=== PATIENT | male | born 1960 | race Caucasian/White ===

== ENCOUNTER 2018-03-01 13:47 | Inpatient (IN) | payer OTHER ==
[~2018-03-01] VITALS: Ht 198.1 cm; Wt 90.0 kg
[2018-03-01] MEDS ORDERED: CYCL10 (14:19)
[2018-03-01] MEDS ORDERED: GLIP2.5ER PO (14:20)
[2018-03-01] MEDS ORDERED: INDO50S PO (14:21)
[2018-03-01] MEDS ORDERED: LISI20 PO (14:22)
[2018-03-01] MEDS ORDERED: METF500C PO (14:22)
[2018-03-01] MEDS ORDERED: NORT25 PO (14:23)
[2018-03-01] MEDS ORDERED: OMEPRAZOLE MAGN20 MG PO (14:23)
[2018-03-01] MEDS ORDERED: Ranitidine HCl300 M1 PO (14:24)
[2018-03-01 15:46] LABS: Source, Urine Clean Catch
[2018-03-01 15:52] LABS: Appearance, Urine Clear (Clear); Bilirubin, Urine Neg (Neg); Blood, Urine Neg (Neg); Color, Urine Yellow (P-Yellow); Glucose Qualitative, Urine Neg (Neg); Ketones, Urine Neg (Neg); Leukocyte Esterase, Urine Neg (Neg); Nitrite, Urine Neg (Neg); Protein, Urine Neg (Neg); Specific Gravity, Urine 1.015 (1.003-1.022); Urobilinogen, Urine NORM (Normal)
[2018-03-01 16:04] LABS: Bun/Creatinine Ratio 22.4 (12.0-20.0); Calcium, Blood 9.2 mg/dL (8.5-10.1); Creatinine, Blood 3.03 mg/dL (0.60-1.20); Potassium, Blood 4.9 mmol/L (3.5-5.5)
[2018-03-01 16:32] LABS: White Blood Cells Urine 0-2 /hpf (0-5)
[2018-03-01 16:38] LABS: Creatinine, Urine Random 62.5 mg/dL (27.00-270.00)
[2018-03-01 17:42] LABS: Eosinophils-Raw #,Urine 0
[2018-03-02 04:11] LABS: Bun/Creatinine Ratio 30.7 (12.0-20.0); Creatinine, Blood 1.63 mg/dL (0.60-1.20); Potassium, Blood 4.8 mmol/L (3.5-5.5)
[2018-03-03] MEDS ORDERED: FLONASE ALLERG9.9 ML (03:30)
[2018-03-03] MEDS ORDERED: Advil200 M1 PO (03:35)
[2018-03-03] MEDS ORDERED: [UNRECOGNIZED DRUG - OTHER] PO (03:54)
[2018-03-03] MEDS ORDERED: PSEUDOEPHEDRINE PO (03:54)
[2018-03-03] MEDS ORDERED: Levitra20 MG PO (04:01)
[2018-03-03 09:30] LABS: Albumin, Blood 3.6 g/dL (3.4-5.0); Anion Gap 5 mmol/L (6-16); Blood Urea Nitrogen 29 mg/dL (8-24); Bun/Creatinine Ratio 27.1 (12.0-20.0); CO2, Blood 30 mmol/L (21-32); Calcium, Blood 8.8 mg/dL (8.5-10.1); Chloride, Blood 102 mmol/L (98-108); Creatinine, Blood 1.07 mg/dL (0.60-1.20); Glomerular Filtration Rate >60 (60-); Glucose, Blood 163 mg/dL (70-99); Phosphorus, Blood 2.1 mg/dL (2.5-4.9); Potassium, Blood 5.2 mmol/L (3.5-5.5); Sodium, Blood 137 mmol/L (136-145)
[2018-03-03] MEDS ORDERED: CYCL10 PO (10:37)
[2018-03-03] MEDS ORDERED: TRAM50 PO (10:38)
== END 2018-03-03 11:51 | disposition home or self-care (01) | DRG 684 ==
LOC: ER 13:47 → MEDS 14:35 → ENPENDDIS 03-03 10:14 → MEDS 03-03 11:51
PROVIDERS: Emergency Medicine; Internal Medicine
DX: N17.0 Acute kidney failure with tubular necrosis (principal); E11.9 Type 2 diabetes mellitus without complications; I10 Essential (primary) hypertension; M54.9 Dorsalgia, unspecified; G89.29 Other chronic pain; Z79.84 Long term (current) use of oral hypoglycemic drugs; E86.0 Dehydration
CPT/HCPCS: 36415; 76770; 80048; 80069; 81003; 82550; 82570; 84300; 84540; 87205; 93005; 93010; 99285-25; J1644; J2405; J7030

== ENCOUNTER 2020-01-15 18:11 | Emergency (ER) | payer OTHER ==
[~2020-01-15 18:11] MED LIST: Advil200 M1 PO; CYCL10; CYCL10 PO; FLONASE ALLERG9.9 ML; GLIP2.5ER PO; INDO50S PO; LISI20 PO; Levitra20 MG PO; METF500C PO; NORT25 PO; OMEPRAZOLE MAGN20 MG PO; PSEUDOEPHEDRINE PO; Ranitidine HCl300 M1 PO; TRAM50 PO; [UNRECOGNIZED DRUG - OTHER] PO
== END 2020-01-15 19:52 | disposition left against medical advice (07) ==
LOC: ER 18:11
DX: Z53.21 Procedure and treatment not carried out due to patient leaving prior to being seen by health care provider (principal)

== ENCOUNTER 2021-08-21 00:13 | Observation (INO) | payer OTHER ==
[~2021-08-21] VITALS: Ht 198.1 cm; Wt 93.9 kg
[2021-08-21 01:06] LABS: BASOPHILS ABSOLUTE AUTO 0.02 K/mm3 (0.00-0.23); BASOPHILS PERCENT AUTO 0 % (0-2); EOSINOPHILS PERCENT AUTO 0 % (0-6); Hematocrit 54.6 % (37.0-53.0); Hemoglobin 18.4 g/dL (13.5-17.5); IMMATURE GRAN ABSOLUTE AUTO 0.11 K/mm3 (0.00-0.10); IMMATURE GRAN PERCENT AUTO 1 % (0-1); LYMPHOCYTES ABSOLUTE AUTO 0.92 K/mm3 (0.84-5.20); LYMPHOCYTES PERCENT AUTO 6 % (21-46); MONOCYTES ABSOLUTE AUTO 1.18 K/mm3 (0.16-1.47); MONOCYTES PERCENT AUTO 7 % (4-13); Mean Corpuscular HGB 32.4 pg (26.0-34.0); Mean Corpuscular HGB Conc 33.7 g/dL (31.5-36.5); Mean Corpuscular Volume 96 fL (80-100); Mean Platelet Volume 11.5 fL (9.1-12.4); NEUTROPHILS ABSOLUTE AUTO 13.95 K/mm3 (1.96-9.15); NEUTROPHILS PERCENT AUTO 86 % (41-73); Platelet Count 179 K/mm3 (150-400); RDW Coefficient Variation 13.1 % (11.7-14.2); RDW Standard Deviation 46.3 fL (35.1-46.3); Red Blood Cell Count 5.68 M/mm3 (4.30-5.90); White Blood Cell Count 16.18 K/mm3 (4.00-11.30)
[2021-08-21 01:21] LABS: Albumin, Blood 4.9 g/dL (3.4-5.0); Albumin/Globulin Ratio 1.1 (0.8-1.8); Bilirubin, Total 1.1 mg/dL (0.1-1.0); Bun/Creatinine Ratio 22.8 (12.0-20.0); Calcium, Blood 10.4 mg/dL (8.5-10.1); Creatinine, Blood 1.27 mg/dL (0.60-1.20); Globulin, Blood 4.5 g/dL (2.2-4.0); Potassium, Blood 4.3 mmol/L (3.5-5.5); Total Protein, Blood 9.4 g/dL (6.4-8.2)
[2021-08-21 02:05] LABS: Influenza A, PCR NEGATIVE (NEGATIVE); Influenza B, PCR NEGATIVE (NEGATIVE); Resp Syncytial Virus, PCR NEGATIVE (NEGATIVE); SARS-Cov-2 (COVID-19) PCR, MMC NEGATIVE (NEGATIVE)
[2021-08-21 02:53] LABS: Anti-Xa UFH, PHA Monitoring <0.10 IU/mL; International Normalized Ratio 1.09; Prothrombin Time Results 11.4 Sec (9.7-11.5)
--- NOTE | 2021-08-21 06:10 | NUR ---
SHIFT SUMMARY PT RESTED WELL AFTER ARRIVAL FROM SUPERVISOR PIGMENT MAKING. ALERT AND ORIENTED, ABBLE TO MAKE NEEDS KNOWN. COOPERATIVE WITH PLAN OF CARE. SATS >95% ON ROOM AIR. TELE READS SINUS TACH 106. NO C/O CHEST PAIN. CORONARIES CLEAR, NOT A STEMI PATIENT. NO INTERVENTIONS DONE. PT DOES HAVE SOME NAUSEA - ZOFRAN GIVEN, SEE EMAR. R RADIAL SITE - STARTING DEFLATION AT 0630 - 10ML IN BAND AT THIS TIME. C/D/I. VOIDS TO URINAL. STAND BY ASSIST. PLANS FOR ECHO IN AM. VSS. CALL LIGHT WITHIN REACH, BED IN LOWEST POSITION. WILL CONTINUE TO MONITOR.
[2021-08-21 07:52] LABS: CHOL/HDL RATIO 1.3; Cholesterol 111 mg/dL (50-200); HDL Cholesterol 84 mg/dL (>39); LDL/HDL RATIO 0.2; Low Density Lipoprotein Chol 15 mg/dL (0-110); Triglycerides 61 mg/dL (30-160); Very Low Density Lipoprot Chol 12 mg/dL (6-32)
--- NOTE | 2021-08-21 08:00 | NUR ---
ASSUMPTION OF CARE Pt is a/o x 4 this morning but nauseous and having emesis. He is sitting up in bed. He is hypertensive. Dr Urrutia has been notified and will be putting in orders reflected on the EMAR. Pt denies chest pain or SOB. His right radial site is soft and has without a hematoma/bleeding. Pt is able to make his needs known and has his call light in reach.
--- NOTE | 2021-08-21 16:34 | NUR ---
SHIFT SUMMARY Pt is a/o x 4 but is COW[place]. This morning after his nausea subsided he was able to eat and drink and has been resting in bed. The bait maker came to see him at the bedside and discussed a plan with him and his . He also ordered some new cardiac meds as reflected on the EMAR. The IV fluids were started as ordered. The pt did c/o a sore/raspy throat but the pharmacy is out of the cepacol that was ordered so the went to the store to get him some hard candy to help with this, he was also offered hot tea/broth but declined. This afternoon he did complain of more nausea but was medicated as ordered and it has been effective so far. The TR band ro his right radial site is recovered now and has a clear op site dressing in place along with the arm board. The pt is able to make his needs knowna and has his call light in reach.
[2021-08-21 17:34] LABS: BASOPHILS ABSOLUTE AUTO 0.03 K/mm3 (0.00-0.23); BASOPHILS PERCENT AUTO 0 % (0-2); EOSINOPHILS PERCENT AUTO 0 % (0-6); Hematocrit 51.5 % (37.0-53.0); Hemoglobin 17.5 g/dL (13.5-17.5); IMMATURE GRAN ABSOLUTE AUTO 0.07 K/mm3 (0.00-0.10); IMMATURE GRAN PERCENT AUTO 0 % (0-1); LYMPHOCYTES ABSOLUTE AUTO 0.83 K/mm3 (0.84-5.20); LYMPHOCYTES PERCENT AUTO 5 % (21-46); MONOCYTES PERCENT AUTO 7 % (4-13); Mean Corpuscular HGB 32.6 pg (26.0-34.0); Mean Corpuscular Volume 96 fL (80-100); Mean Platelet Volume 10.7 fL (9.1-12.4); NEUTROPHILS ABSOLUTE AUTO 14.04 K/mm3 (1.96-9.15); NEUTROPHILS PERCENT AUTO 87 % (41-73); Platelet Count 142 K/mm3 (150-400); RDW Coefficient Variation 13.3 % (11.7-14.2); Red Blood Cell Count 5.37 M/mm3 (4.30-5.90); White Blood Cell Count 16.17 K/mm3 (4.00-11.30)
[2021-08-21 18:01] LABS: U Amphetamine Screen Not Detected; U Barbituate Screen Not Detected; U Benzodiazapine Screen Not Detected; U Buprenorphine Screen Not Detected; U Cannabinoids Screen DETECTED; U Cocaine Screen Not Detected; U Methadone Screen Not Detected; U Methamphetamine Screen Not Detected; U Opiates Screen Not Detected; U Oxycodone Screen Not Detected; U Phencyclidine Screen Not Detected; U Propoxyphene Screen Not Detected
[2021-08-21 19:12] LABS: Hematocrit 50.4 % (37.0-53.0); Hemoglobin 17.1 g/dL (13.5-17.5)
[2021-08-21 19:33] LABS: Albumin, Blood 3.7 g/dL (3.4-5.0); Anion Gap 13 mmol/L (6-16); Blood Urea Nitrogen 28 mg/dL (8-24); Bun/Creatinine Ratio 26.7 (12.0-20.0); CO2, Blood 21 mmol/L (21-32); Calcium, Blood 9.3 mg/dL (8.5-10.1); Chloride, Blood 100 mmol/L (98-108); Creatinine, Blood 1.05 mg/dL (0.60-1.20); Glomerular Filtration Rate >60 (60-); Glucose, Blood 219 mg/dL (70-99); Phosphorus, Blood 2.3 mg/dL (2.5-4.9); Potassium, Blood 4.2 mmol/L (3.5-5.5); Sodium, Blood 134 mmol/L (136-145)
[2021-08-22 03:37] LABS: BASOPHILS ABSOLUTE AUTO 0.02 K/mm3 (0.00-0.23); BASOPHILS PERCENT AUTO 0 % (0-2); EOSINOPHILS ABSOLUTE AUTO 0.01 K/mm3 (0.00-0.68); EOSINOPHILS PERCENT AUTO 0 % (0-6); Hematocrit 53.5 % (37.0-53.0); Hemoglobin 18.1 g/dL (13.5-17.5); IMMATURE GRAN ABSOLUTE AUTO 0.05 K/mm3 (0.00-0.10); IMMATURE GRAN PERCENT AUTO 0 % (0-1); LYMPHOCYTES ABSOLUTE AUTO 0.92 K/mm3 (0.84-5.20); LYMPHOCYTES PERCENT AUTO 6 % (21-46); MONOCYTES ABSOLUTE AUTO 1.32 K/mm3 (0.16-1.47); MONOCYTES PERCENT AUTO 8 % (4-13); Mean Corpuscular HGB 32.3 pg (26.0-34.0); Mean Corpuscular HGB Conc 33.8 g/dL (31.5-36.5); Mean Corpuscular Volume 95 fL (80-100); NEUTROPHILS ABSOLUTE AUTO 14.12 K/mm3 (1.96-9.15); NEUTROPHILS PERCENT AUTO 86 % (41-73); Platelet Count 148 K/mm3 (150-400); RDW Coefficient Variation 13.2 % (11.7-14.2); RDW Standard Deviation 46.5 fL (35.1-46.3); Red Blood Cell Count 5.61 M/mm3 (4.30-5.90); White Blood Cell Count 16.44 K/mm3 (4.00-11.30)
[2021-08-22 03:55] LABS: Albumin, Blood 3.7 g/dL (3.4-5.0); Anion Gap 16 mmol/L (6-16); Blood Urea Nitrogen 30 mg/dL (8-24); Bun/Creatinine Ratio 31.1 (12.0-20.0); CO2, Blood 19 mmol/L (21-32); Calcium, Blood 9.1 mg/dL (8.5-10.1); Chloride, Blood 100 mmol/L (98-108); Creatinine, Blood 0.97 mg/dL (0.60-1.20); Glomerular Filtration Rate >60 (60-); Glucose, Blood 202 mg/dL (70-99); Phosphorus, Blood 2.7 mg/dL (2.5-4.9); Potassium, Blood 4.1 mmol/L (3.5-5.5); Sodium, Blood 135 mmol/L (136-145)
--- NOTE | 2021-08-22 04:52 | NUR ---
SHIFT SUMMARY PT ALERT AND ORIENTED X4. ST 110'S. TACHY TO 140'S WITH ACTIVITY. AFEBRILE. BP STABLE. ON RA SATS OVER 94%. LUNG SOUNDS CLEAR. C/O NAUSEA THROUGHOUT THE NIGHT. LITTLE RELIEF WITH PHENERGAN AND REGLAN. RIGHT RADIAL SITE C/D/I. AMBULATES INDEPENDENTLLY TO BATHROOM. NS RUNNING AT 100ML/HR. IN BED SLEEPING WITH CALL ALARM AT SIDE. WILL CONTINUE TO MONITOR UNTIL REPORT GIVEN TO DAYSHIFT RN
--- NOTE | 2021-08-22 07:27 | NUR ---
ASSUMPTION OF CARE Pt is a/o x 4 and resting in bed. His HR is elevated @ 111. He denies chest pain or SOB. His voice is hoarse but his lungs sounds are clear. Right radial site is free from bleeding and swelling and the clear dressing is CDI. His IV fluids continue to infuse as ordered. He has his call light in reach and uses it appropriately when needed.
--- NOTE | 2021-08-22 17:30 | NUR ---
SHIFT SUMMARY Pt is a/o x 4. He denies chest pain. He still c/o malaise and generalized weakness. He was able to walk to the bathroom to void this afternoon. He has ongoing nausea and has been medicated PRN but he also reported that he has not had a BM since his arrival to the hospital, the Dr was notified and gave an order for miralax and tums. He also drank a cup of prune juice. So far he has yet to move his bowels. He remains hypertensive and tachycardic and the doctors are aware. The chief risk officer saw the patient again today and made some med changes as reflected on the EMAR. His has been at the bedside most of the day and is very helpful. Pt continues to use the urinal as needed and has good po intake. He calls appropriately when needed.
[2021-08-23 03:56] LABS: BASOPHILS ABSOLUTE AUTO 0.01 K/mm3 (0.00-0.23); BASOPHILS PERCENT AUTO 0 % (0-2); EOSINOPHILS PERCENT AUTO 0 % (0-6); Hemoglobin 18.7 g/dL (13.5-17.5); IMMATURE GRAN ABSOLUTE AUTO 0.02 K/mm3 (0.00-0.10); IMMATURE GRAN PERCENT AUTO 0 % (0-1); LYMPHOCYTES ABSOLUTE AUTO 0.69 K/mm3 (0.84-5.20); LYMPHOCYTES PERCENT AUTO 7 % (21-46); MONOCYTES ABSOLUTE AUTO 1.25 K/mm3 (0.16-1.47); MONOCYTES PERCENT AUTO 12 % (4-13); Mean Corpuscular HGB 32.5 pg (26.0-34.0); Mean Corpuscular HGB Conc 33.2 g/dL (31.5-36.5); Mean Corpuscular Volume 98 fL (80-100); Mean Platelet Volume 11.2 fL (9.1-12.4); NEUTROPHILS ABSOLUTE AUTO 8.64 K/mm3 (1.96-9.15); NEUTROPHILS PERCENT AUTO 81 % (41-73); Platelet Count 159 K/mm3 (150-400); RDW Coefficient Variation 13.2 % (11.7-14.2); RDW Standard Deviation 47.8 fL (35.1-46.3); Red Blood Cell Count 5.75 M/mm3 (4.30-5.90); White Blood Cell Count 10.61 K/mm3 (4.00-11.30)
[2021-08-23 04:11] LABS: Hematocrit 56.4 % (37.0-53.0)
[2021-08-23 04:19] LABS: Albumin, Blood 3.3 g/dL (3.4-5.0); Anion Gap 17 mmol/L (6-16); Blood Urea Nitrogen 37 mg/dL (8-24); Bun/Creatinine Ratio 33.3 (12.0-20.0); CO2, Blood 17 mmol/L (21-32); Calcium, Blood 8.9 mg/dL (8.5-10.1); Chloride, Blood 99 mmol/L (98-108); Creatinine, Blood 1.11 mg/dL (0.60-1.20); Glomerular Filtration Rate >60 (60-); Glucose, Blood 176 mg/dL (70-99); Phosphorus, Blood 3.7 mg/dL (2.5-4.9); Potassium, Blood 4.7 mmol/L (3.5-5.5); Sodium, Blood 133 mmol/L (136-145)
--- NOTE | 2021-08-23 06:15 | NUR ---
SHIFT SUMMARY PT ALERT AND ORIENTED X4. HR SR/ST. BP STABLE. AFEBRILE. INDEPENDENT FOR ADLS. X1 COMPLAINT OF NAUSEA, MEDICATED PER EMAR. C/O CONSTIPATION AND STOMACH DISCOMFORT, NO BM SINCE 08/20. SUPPOSITORY GIVEN AT 0202, PT ABLE TO HAVE BM. STATES THAT HE FEELS BETTER. IN BED SLEEPING WITH CALL ALARM AT SIDE. WILL CONTINUE TO MONITOR UNTIL REPORT GIVEN TO DAYSHIFT YARED
--- NOTE | 2021-08-23 08:03 | NUR ---
CARE ASSUMPTION PATIENT IS ALERT AND ORIENTATED X4. PERRLA. NEURO IS INTACT. PATENT REPORTS NO CHEST PAIN, PAIN, OR SHORTNESS OF BREATH THIS MORNING. PATIENT RADIAL AND PEDIS PULSES STRONG. LUNG SOUNDS ARE CLEAR. PATIENT DENIES ANY NAUSEA THIS MORNING, AND STATED HE IS FEELING MUCH BETTER. PATIENT SKIN IS INTACT, AND RIGHT RADIAL SITE HAS NO BLEEDING, REDNESS, OR SWELLING. SEE SHIFT ASSESSMENT FOR FULL DETAILS. PATIENT IS INDEPENDENT IN THE ROOM AND CALLS IF HE NEEDS ASSISTANCE. CALL LIGHT IS WITHIN REACH AND BED IN LOWEST POSITION. WILL CONTINUE TO MONITOR AND PROVIDE CARE.
[2021-08-23] MEDS ORDERED: BENMENLOZ MT (11:39)
[2021-08-23] MEDS ORDERED: BISA10S PR (11:39)
[2021-08-23] MEDS ORDERED: Calcium Carbon500 MG PO (11:41)
[2021-08-23] MEDS ORDERED: DOCUZEN 8.6-501 EACH PO (11:42)
[2021-08-23] MEDS ORDERED: JARDIANCE10 MG PO (11:43)
[2021-08-23] MEDS ORDERED: GUAI600T33 PO (11:44)
[2021-08-23] MEDS ORDERED: MIRALAX17 GM PO (11:44)
[2021-08-23] MEDS ORDERED: PROMETHAZINE12.5 M1 PO (11:45)
[2021-08-23] MEDS ORDERED: SPIR25 PO (11:46)
--- NOTE | 2021-08-23 12:12 | NUR ---
DISCHARGE THIS RN PROVIDED PATIENT AND PATIENT AT BEDSIDE WITH DISCHARGE EDUCATION. WE WENT OVER THE PATIET NEW MEDICATIONS AND THE RATIONALE FOR EACH ONE. THIS RN INFORMED THEM TO CONTACT THEIR PCP AT THE [facility], THAT WE WERE UNABLE TO SCHEDULE AN APPOINTMENT AND THEY MENTINED THEY HAD ONE August. THIS RN ALSO INFORMED THEM THAT SENIOR [employer] NETWORK ENGINEER WILL BE CALLING THEM TO SCHEDULE A FOLLOW UP APPOINTMENT DUE TO NEEDING TO SEE PCP FIRST, AND IF THEY DON'T HEAR FROM THEM BY THE END OF NEXT WEEK TO CALL THEM. THIS RN PUSHED THE PATIENT OUT VIA WHEELCHAIR TO HIS AND VECHILE. ALL THE PATIENT BELONGINGS AND EDUCATION WERE WITH THE PATIENT.
[2021-08-23] MEDS ORDERED: Carvedilol12.5 MG PO (12:19)
[2021-08-23] MEDS ORDERED: Prinivil10 MG PO (12:20)
[2021-08-23] MEDS ORDERED: ALOGLIPTIN25 M1 PO (13:47)
== END 2021-08-23 12:01 | disposition home or self-care (01) ==
LOC: ER 00:13 → ICUW 00:14 → PCU 00:14 → ER 03:35 → ICUW 03:35 → PCU 04:32 → ICUW 04:32 → PCU 04:32
PROVIDERS: Family Medicine; Internal Medicine; Internal Medicine Interventional Cardiology; Student in an Organized Health Care Education/Training Program; ADMIT Internal Medicine
DX: I21.3 ST elevation (STEMI) myocardial infarction of unspecified site (principal); I25.119 Atherosclerotic heart disease of native coronary artery with unspecified angina pectoris; K52.1 Toxic gastroenteritis and colitis; N17.9 Acute kidney failure, unspecified; I11.0 Hypertensive heart disease with heart failure; I50.43 Acute on chronic combined systolic (congestive) and diastolic (congestive) heart failure; E11.9 Type 2 diabetes mellitus without complications; Z88.6 Allergy status to analgesic agent; Z88.0 Allergy status to penicillin; Z96.653 Presence of artificial knee joint, bilateral; Z20.822 Contact with and (suspected) exposure to COVID-19
CPT/HCPCS: 0241U; 36415; 71045; 76937; 80053; 80061; 80069; 82947; 83036; 83690; 84443; 84484; 85014; 85018; 85025; 85520; 85610; 87081; 87430; 93005; 93010; 93458; 94762; 96374; 96375; 99152; 99153; 99285-25; A9270; C1769; C1887; C1894; C8929; J1644; J2250; J2370; J2405; J2550; J2765; J3010; J7030; J7040; J7050; J7120; Q9957; Q9967

== ENCOUNTER 2021-08-24 03:37 | Inpatient (IN) | payer OTHER ==
[~2021-08-24] VITALS: Ht 177.8 cm; Wt 94.7 kg
[~2021-08-24 03:37] MED LIST changes: +ALOGLIPTIN25 M1 PO; +BENMENLOZ MT; +BISA10S PR; +Calcium Carbon500 MG PO; +Carvedilol12.5 MG PO; +DOCUZEN 8.6-501 EACH PO; +GUAI600T33 PO; +JARDIANCE10 MG PO; +MIRALAX17 GM PO; +PROMETHAZINE12.5 M1 PO; +Prinivil10 MG PO; +SPIR25 PO
[2021-08-24 04:09] LABS: BASOPHILS ABSOLUTE AUTO 0.03 K/mm3 (0.00-0.23); BASOPHILS PERCENT AUTO 0 % (0-2); EOSINOPHILS ABSOLUTE AUTO 0.01 K/mm3 (0.00-0.68); EOSINOPHILS PERCENT AUTO 0 % (0-6); Hemoglobin 19.2 g/dL (13.5-17.5); IMMATURE GRAN ABSOLUTE AUTO 0.02 K/mm3 (0.00-0.10); IMMATURE GRAN PERCENT AUTO 0 % (0-1); LYMPHOCYTES ABSOLUTE AUTO 1.03 K/mm3 (0.84-5.20); LYMPHOCYTES PERCENT AUTO 9 % (21-46); MONOCYTES ABSOLUTE AUTO 1.58 K/mm3 (0.16-1.47); MONOCYTES PERCENT AUTO 14 % (4-13); Mean Corpuscular HGB 32.3 pg (26.0-34.0); Mean Corpuscular HGB Conc 33.8 g/dL (31.5-36.5); Mean Corpuscular Volume 96 fL (80-100); Mean Platelet Volume 10.8 fL (9.1-12.4); NEUTROPHILS ABSOLUTE AUTO 8.28 K/mm3 (1.96-9.15); NEUTROPHILS PERCENT AUTO 76 % (41-73); Platelet Count 180 K/mm3 (150-400); RDW Coefficient Variation 12.9 % (11.7-14.2); RDW Standard Deviation 45.8 fL (35.1-46.3); Red Blood Cell Count 5.94 M/mm3 (4.30-5.90); White Blood Cell Count 10.95 K/mm3 (4.00-11.30)
[2021-08-24 04:10] LABS: Hematocrit 56.8 % (37.0-53.0)
[2021-08-24 04:21] LABS: Alanine Aminotransfer (ALT/SGP 29 U/L (12-78); Albumin, Blood 3.2 g/dL (3.4-5.0); Albumin/Globulin Ratio 0.8 (0.8-1.8); Alk Phos 49 U/L (50-136); Anion Gap 18 mmol/L (6-16); Aspartate Aminotrans (AST/SGOT 19 U/L (12-37); Bilirubin, Total 1.1 mg/dL (0.1-1.0); Blood Urea Nitrogen 41 mg/dL (8-24); Bun/Creatinine Ratio 41.5 (12.0-20.0); CO2, Blood 13 mmol/L (21-32); Calcium, Blood 8.3 mg/dL (8.5-10.1); Chloride, Blood 101 mmol/L (98-108); Creatinine, Blood 0.99 mg/dL (0.60-1.20); Globulin, Blood 3.8 g/dL (2.2-4.0); Glomerular Filtration Rate >60 (60-); Glucose, Blood 216 mg/dL (70-99); Potassium, Blood 4.4 mmol/L (3.5-5.5); Sodium, Blood 132 mmol/L (136-145)
--- NOTE | 2021-08-24 14:10 | NUR ---
Patient was transferred from ER at 11am. His family accompanied him. He was alert and orient. [facility] for STEMI. 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 He does have L side deficits. His right hand was able to squeeze my hand but left hand was flaccid, not able to squeeze. The same for the R leg able to move but not the L leg. Physical therapy attempted to work with him, but patient could not sit up. Continue to monitor this patient. Family remain at bedside
[2021-08-25 04:37] LABS: BASOPHILS ABSOLUTE AUTO 0.02 K/mm3 (0.00-0.23); BASOPHILS PERCENT AUTO 0 % (0-2); EOSINOPHILS PERCENT AUTO 0 % (0-6); Hematocrit 54.5 % (37.0-53.0); Hemoglobin 18.5 g/dL (13.5-17.5); IMMATURE GRAN ABSOLUTE AUTO 0.05 K/mm3 (0.00-0.10); IMMATURE GRAN PERCENT AUTO 0 % (0-1); LYMPHOCYTES PERCENT AUTO 5 % (21-46); MONOCYTES ABSOLUTE AUTO 1.93 K/mm3 (0.16-1.47); MONOCYTES PERCENT AUTO 17 % (4-13); Mean Corpuscular HGB 32.3 pg (26.0-34.0); Mean Corpuscular HGB Conc 33.9 g/dL (31.5-36.5); Mean Corpuscular Volume 95 fL (80-100); Mean Platelet Volume 10.8 fL (9.1-12.4); NEUTROPHILS ABSOLUTE AUTO 8.94 K/mm3 (1.96-9.15); NEUTROPHILS PERCENT AUTO 78 % (41-73); Platelet Count 188 K/mm3 (150-400); RDW Coefficient Variation 13.2 % (11.7-14.2); RDW Standard Deviation 46.7 fL (35.1-46.3); Red Blood Cell Count 5.72 M/mm3 (4.30-5.90); White Blood Cell Count 11.54 K/mm3 (4.00-11.30)
[2021-08-25 05:12] LABS: Anion Gap 18 mmol/L (6-16); Blood Urea Nitrogen 52 mg/dL (8-24); Bun/Creatinine Ratio 48.1 (12.0-20.0); CO2, Blood 13 mmol/L (21-32); Calcium, Blood 8.8 mg/dL (8.5-10.1); Chloride, Blood 107 mmol/L (98-108); Creatinine, Blood 1.08 mg/dL (0.60-1.20); Glomerular Filtration Rate >60 (60-); Glucose, Blood 301 mg/dL (70-99); Magnesium, Blood 2.8 mg/dL (1.6-2.4); Phosphorus, Blood 2.8 mg/dL (2.5-4.9); Potassium, Blood 4.3 mmol/L (3.5-5.5); Sodium, Blood 138 mmol/L (136-145); Triglycerides 196 mg/dL (30-160)
--- NOTE | 2021-08-25 06:11 | NUR ---
SHIFT SUMMARY 60 YR M ADMITTED ON 08/24 FOR CVA. FULL CODE. PT WAS DISCHAGED ONE DAY PRIOR AFTER BEING HOSPITALIZED FOR STEMI. PT IS UNABLE TO COMMUNICATE VERBALLY BUT MAKES HAND GESTURES IN AN ATTEMPT TO RELAY HIS NEEDS. HE IS STRICT NPO ASPIRATION PRECAUTION. HE CHOKES EVEN ON WATER. HE HAS NONVERBALLY ASKED FOR WATER MULTIPLE TIMES THROUGHOUT THIS SHIFT. HE IS ABLE TO FOLLOW BASIC DIRECTION BUT TENDS TO GRAB WITH HIS RIGHT HAND. HE APPEARS TO GET FRUSTRATED WITH THE LACK OF COMMUNICATION. HE HAS PULLED THE STATLOCK FOR HIS MAR OFF OF HIS LEG TWICE DURING THIS SHIFT. HE IS SINUS TACHY @120 PER LADLE FILLER.
--- NOTE | 2021-08-25 07:42 | NUR ---
RN recvd handoff of patient care from YARED Mac Patient was asleep but RN noticed some gurgling in his throat. Oral suctioning did not help and so RN called and asked provider for an order for deep suctioning. Respiratory has been notified
[2021-08-25 15:53] LABS: BASOPHILS ABSOLUTE AUTO 0.04 K/mm3 (0.00-0.23); BASOPHILS PERCENT AUTO 0 % (0-2); EOSINOPHILS PERCENT AUTO 0 % (0-6); Hematocrit 53.1 % (37.0-53.0); IMMATURE GRAN ABSOLUTE AUTO 0.03 K/mm3 (0.00-0.10); IMMATURE GRAN PERCENT AUTO 0 % (0-1); LYMPHOCYTES ABSOLUTE AUTO 0.51 K/mm3 (0.84-5.20); LYMPHOCYTES PERCENT AUTO 5 % (21-46); MONOCYTES ABSOLUTE AUTO 1.82 K/mm3 (0.16-1.47); MONOCYTES PERCENT AUTO 16 % (4-13); Mean Corpuscular HGB 32.6 pg (26.0-34.0); Mean Corpuscular HGB Conc 33.9 g/dL (31.5-36.5); Mean Corpuscular Volume 96 fL (80-100); Mean Platelet Volume 10.8 fL (9.1-12.4); NEUTROPHILS ABSOLUTE AUTO 8.98 K/mm3 (1.96-9.15); NEUTROPHILS PERCENT AUTO 79 % (41-73); Platelet Count 189 K/mm3 (150-400); RDW Coefficient Variation 13.3 % (11.7-14.2); RDW Standard Deviation 47.9 fL (35.1-46.3); Red Blood Cell Count 5.52 M/mm3 (4.30-5.90); White Blood Cell Count 11.38 K/mm3 (4.00-11.30)
--- NOTE | 2021-08-25 17:05 | NUR ---
Patient was alert and orient, family at bedside throughout the shift. RN was concerned of the secretions that could not be suctioned by respiratory so RN called provider and informed him of concern of possible pneumonia and RN asked for suggestions with this patient. Provider ordered Labs stat, CXR-1 view, and ABX Levaquin. RIght at that moment, the staff that took this patient vitals stated that the patient 02 level wont climb past 85%. RT was present and right away put 2L of 02 on and eventually increasing the amount to 7LPM. Provider ordered stat Lactic acid and agreed to transfer the patient to PCU. THis RN and another staff transferred the patient to PCU and gave report to the accepting RN.
--- NOTE | 2021-08-25 18:03 | NUR ---
Pt transferred from medical floor. VSS on 6-8L on oxymizer, titrated to 6L and sating low-mid 90s. TPN was started after new powerglide was placed in left upper arm. IV abx given per orders. Pt given fentynl for back pain that toradol did not relieve. Pt NPO, oral care done. LActic acid 2.0. Neuro: Pt is oriented x4 and alert, but needs to communicate by writing answers. He can nod yes/no, but can write with right hand to answer questions and make needs known. Left side is completely down with no resistance to gravity. Right side upper and lower pt can move well. Trouble tracking with eyes to left. Pupils are reactive. 2 person max assist. Dickerson in place and draining well, pt reports it is uncomfortable and catheter care was done.
--- NOTE | 2021-08-25 18:42 | NUR ---
Update from note: Pt lungs have been very wet and coarse sounding since arrival to PCU. RR 28-32. Pt remains on 6L oxymizer and sating well. CBG 293, covered. Frequent oral care requested by pt. Skin: I found a small sore on tip of penis after pt complaining that catheter feels uncomfortable. I applied some gel to keep skin moistened hoping that will alleviate some pain. Dickerson draining well.
--- NOTE | 2021-08-25 20:11 | NUR ---
UPDATE PHYSICIAN NOTIFIED PT'S HR INCREASED FROM SINUS TACH TO A-FIB 180'S. PT NO LONGER IN AFIB AN DHR SINUS TACH 130. ORDERS FOR CARDIZEM 10 MG ONCE X 1.
--- NOTE | 2021-08-25 22:00 | NUR ---
PHYSICIAN UPDATED PT HAVING NEURO CHANGES. PT NO LONGER AWARE OF LOCATION AND UNABLE TO WRITE DOWN ORIENTATION QUESTIONS ON PAPER. PT ATTEMPTS BUT UNABLE TO WRITE OUT WORDS. PT HAVING VISUAL HALLUCINATIONS. USING R HAND TO GRAB AT THINGS IN AIR. PHYSICIAN NOTIFIED OF NEURO CHANGES. INSTRUCTED TO CONT TO MONITOR. NO NEW ORDERS.
--- NOTE | 2021-08-26 03:12 | NUR ---
PHYSICIAN NOTIFIED/UPDATE PT CONT TO HAVE INCREASE IN CONFUSION. PT NOW USING R HAND TO SCRATCH L HAND. PICTURE IN CHART. WOUND CLEANED AND DRESSED. PT NOT DIRECTABLE AND CONT TO PULL AT ARM. PHYSICIAN NOTIFIED. ORDERS FOR Q 4 NEURO CHECKS AND SOFT WRIST RESTRAINT ON R HAND.
[2021-08-26 05:11] LABS: Magnesium, Blood 3.3 mg/dL (1.6-2.4); Phosphorus, Blood 1.7 mg/dL (2.5-4.9)
--- NOTE | 2021-08-26 05:57 | NUR ---
SHIFT SUMMARY PT ALERT AND ORIENTED AT BEGINNING OF SHIFTS. PT NOW ALERT TO SELF AND CONFUSED. HAVING VISUAL HALLUCINATIONS. SCRATCHING L HAND. SEE CHART FOR PICS. PHYSICIAN AWARE. PT NOW HAS RESTRAINTS ON R HAND PER PHYSICIAN ORDER. HR CONVERTED TO AFIB DURING SHIFT, SEE EHR. CONVERTED BACK TO SINUS TACH. PHYSICIAN AWARE. PT TURNED Q 2 HRS. ORAL CARE PROVIDED Q 2 HRS. RT NOTIFIED PT WAS IN NEED OF DEEP SUCTIONING D/T INABILITY TO CLEAR SECRETIONS ON OWN. OXYGEN SATURATION MAINTAINED ABOVE 92% ON 6 L VIA OXYMIZER. Q 4 NEURO CHECKS ORDERED PER PHYSICIAN ORDER D/T NEURO CHANGES. MAR TO GRAVITY DRAIN. WILL CONT TO MONITOR UNTIL REPORT GIVEN TO BERNADETTE RN.
--- NOTE | 2021-08-26 08:07 | NUR ---
Pt is only oriented to self this AM. Completely down on left side. Jose Francisco is at bedside and I removed restraint while she is in the room. Pt has soft wrist restraint on right wrist overnight. Dickerson in place and draining well. VSS on 6L oxymizer. Pt has left side neglect and gaze is mainly fixed to right side. I had sit on right side so pt is aware she is in the room. Attempted to call palliative care and LVM to see if they can see pt first thing this AM.
--- NOTE | 2021-08-26 08:39 | NUR ---
Attempted to call palliative care again, no answer.
--- NOTE | 2021-08-26 08:48 | NUR ---
Pt has had increased oxygen need today, on 10L oxymizer sating 88, I called RT to come assess and see if suctioning would help.
--- NOTE | 2021-08-26 09:01 | NUR ---
Pt having increased oxygen demand, maxed out on oxymizer notified and will round in the next 30 minutes. Order placed for heated highflow ink blender system and RT called.
[2021-08-26 10:10] LABS: Hematocrit 49.7 % (37.0-53.0); Hemoglobin 16.9 g/dL (13.5-17.5); Mean Corpuscular HGB 32.4 pg (26.0-34.0); Mean Corpuscular Volume 95 fL (80-100); Mean Platelet Volume 11.1 fL (9.1-12.4); Platelet Count 166 K/mm3 (150-400); RDW Coefficient Variation 13.5 % (11.7-14.2); RDW Standard Deviation 47.7 fL (35.1-46.3); Red Blood Cell Count 5.22 M/mm3 (4.30-5.90)
[2021-08-26 10:34] LABS: Alanine Aminotransfer (ALT/SGP 20 U/L (12-78); Albumin, Blood 2.7 g/dL (3.4-5.0); Albumin/Globulin Ratio 0.8 (0.8-1.8); Alk Phos 44 U/L (50-136); Anion Gap 11 mmol/L (6-16); Aspartate Aminotrans (AST/SGOT 10 U/L (12-37); Bilirubin, Total 0.7 mg/dL (0.1-1.0); Blood Urea Nitrogen 46 mg/dL (8-24); CO2, Blood 20 mmol/L (21-32); Calcium, Blood 9.7 mg/dL (8.5-10.1); Chloride, Blood 116 mmol/L (98-108); Creatinine, Blood 0.94 mg/dL (0.60-1.20); Globulin, Blood 3.6 g/dL (2.2-4.0); Glomerular Filtration Rate >60 (60-); Glucose, Blood 288 mg/dL (70-99); Potassium, Blood 4.1 mmol/L (3.5-5.5); Sodium, Blood 147 mmol/L (136-145); Total Protein, Blood 6.3 g/dL (6.4-8.2)
[2021-08-26 10:46] LABS: BAND PERCENT MAN 25 % (0-8); BASOPHILS PERCENT MAN 0 % (0-2); EOSINOPHILS PERCENT MAN 0 % (0-6); LYMPHOCYTES ABSOLUTE MAN 1.13 K/mm3 (0.84-5.20); LYMPHOCYTES PERCENT MAN 14 % (21-46); MONOCYTES ABSOLUTE MAN 0.72 K/mm3 (0.16-1.47); MONOCYTES PERCENT MAN 9 % (4-13); NEUTROPHILS ABSOLUTE MAN 6.23 K/mm3 (1.96-9.15); SEG NEUTROPHILS PERCENT MAN 52 % (41-73); TOTAL CELLS COUNTED 100
--- NOTE | 2021-08-26 11:58 | NUR ---
Pt transported to MRI with 15L high flow mask. Pt was sustaining 94% on high flow canula 15L prior to pt transporting.
--- NOTE | 2021-08-26 11:58 | NUR ---
Pt was sustaining HR 130s, prn labetalol given per orders.
--- NOTE | 2021-08-26 14:06 | NUR ---
MD notifed that pt tolerated MRI and results have posted in chart.
--- NOTE | 2021-08-26 14:08 | NUR ---
Met with both pt and his at the bedside. Pt is unable to speak at this time. He does have a speech board, along paper and pen and a white board. Pt's Dedra tells me that pt was writing better yesterday than today, and he seems to be more confused in general today. Their bead preparer was also at the bedside, so Jose Francisco and I left for a few mintues to talk. She was tearful when we talked about pt's history of a previous head injury and a cancer diagnosis and subsequent treatment several years ago. She states pt has an Advanced Directive at the [facility]. I will request a copy. Jose Francisco states his wishes matter, whatever they are. Will take a copy to pt and his when received to discuss further. Pt's current status is Full Code.
--- NOTE | 2021-08-26 16:29 | NUR ---
Shift note: Pt is none verbal, can respond by nodding yes/no. Pt is not able to use the written communication quite as well today, was only able to write his name this AM and has been refusing to use written communication since then. Right gaze. Left side is completely flaccid. Right side has good strength, pt worked with OT today, but was too tired to work with PT. VSS, but there was an increase in oxygen demands today. Pt was on 6L oxymizer at start of shift, but was unable to keep sats above 90 on oxymizer 15L. RT started heated highflow nasal canula on pt at 50L 60%, I was able to titrate pt to 50L and 38%. HR sustaining 130s, prn labetolol given per orders x1. CBGs 200s, sliding scale used per orders. Pt had MRI done today, tolerated well. MRI showed Large right side MCA stroke and cytotoxic edema, MD discussed results with pts family at bedside. Palliative care spoke with pt and pt's Jose Francisco today. Sophia with palliative care is trying to locate pt POLST/Advanced directive from [place] and then will meet again with pts . Frequent oral care, pt is able to participate with care and hold the swabs with right hand while nursing staff uses suction. Pt remains NPO at this time. SHAKE FEEDER held off on eval today due to increased oxygen need this AM. Pt reported pain in low back, but declined any IV medication. Pt repositioned often to provide comfortable positioning and prevent skin breakdown. PPN continued today per orders. 1L of NS started at 100ml/hr as well as sodium phos. Dickerson in place for accurate I/O, draing well with yellow urine.
--- NOTE | 2021-08-26 18:14 | NUR ---
[facility] Pt made his wishes for DNR status on any life threatening or life altering ilness. I gave a copy of the AD to Jose Francisco, and will send one to medical records. Received VO from Dr. Irving, pt code is now DNR.
[2021-08-27 04:20] LABS: Hematocrit 42.2 % (37.0-53.0); Hemoglobin 14.3 g/dL (13.5-17.5); Mean Corpuscular HGB 32.5 pg (26.0-34.0); Mean Corpuscular HGB Conc 33.9 g/dL (31.5-36.5); Mean Corpuscular Volume 96 fL (80-100); Mean Platelet Volume 11.2 fL (9.1-12.4); Platelet Count 122 K/mm3 (150-400); RDW Coefficient Variation 13.6 % (11.7-14.2); RDW Standard Deviation 48.5 fL (35.1-46.3); White Blood Cell Count 7.56 K/mm3 (4.00-11.30)
[2021-08-27 04:40] LABS: Alanine Aminotransfer (ALT/SGP 16 U/L (12-78); Albumin, Blood 2.2 g/dL (3.4-5.0); Albumin/Globulin Ratio 0.6 (0.8-1.8); Alk Phos 42 U/L (50-136); Anion Gap 5 mmol/L (6-16); Aspartate Aminotrans (AST/SGOT 9 U/L (12-37); Bilirubin, Total 0.9 mg/dL (0.1-1.0); Blood Urea Nitrogen 45 mg/dL (8-24); Bun/Creatinine Ratio 55.9 (12.0-20.0); CO2, Blood 27 mmol/L (21-32); Calcium, Blood 9.3 mg/dL (8.5-10.1); Chloride, Blood 122 mmol/L (98-108); Creatinine, Blood 0.81 mg/dL (0.60-1.20); Globulin, Blood 3.4 g/dL (2.2-4.0); Glomerular Filtration Rate >60 (60-); Glucose, Blood 273 mg/dL (70-99); Phosphorus, Blood 2.1 mg/dL (2.5-4.9); Potassium, Blood 4.1 mmol/L (3.5-5.5); Sodium, Blood 154 mmol/L (136-145); Total Protein, Blood 5.6 g/dL (6.4-8.2)
[2021-08-27 05:00] LABS: BAND PERCENT MAN 20 % (0-8); BASOPHILS PERCENT MAN 0 % (0-2); EOSINOPHILS PERCENT MAN 0 % (0-6); LYMPHOCYTES ABSOLUTE MAN 0.68 K/mm3 (0.84-5.20); LYMPHOCYTES PERCENT MAN 9 % (21-46); MONOCYTES PERCENT MAN 12 % (4-13); NEUTROPHILS ABSOLUTE MAN 5.97 K/mm3 (1.96-9.15); SEG NEUTROPHILS PERCENT MAN 59 % (41-73); TOTAL CELLS COUNTED 100
--- NOTE | 2021-08-27 05:57 | NUR ---
SHIFT SUMMARY NO ACUTE CHANGES THIS SHIFT. PT ALERT, FOLLOWS DIRECTIONS BEST HE CAN. NODS HEAD YES OR NO. ABLE TO WRITE PAIN NUMBER ON WHITE BOARD. SP02>92% ON 50L AIRVO. TELEMETRY SHOWS NSR/ST, HR 80'S-110'S. FEW RUNS OF SVT BRIEFLY. MAR CATHETER DRAINING CLEAR YELLOW URINE TO GRAVITY. ONE SMALL SMEAR BM. PT C/O OF R ARM PAIN, MEDICATED W/ TORADOL PER EMAR X1. PT REMAINED NPO. ORAL DONE Q4H. PT REPOSITIONED OCCASIONALLY, REFUSED PART OF TIME. PPN INFUSING PER EMAR. CALL LIGHT IN REACH.
--- NOTE | 2021-08-27 10:22 | NUR ---
Neuro improvement today from yesterday. Pt was able to slighly move left foot when prompted by PT. This is new from yesterday when pt was completly flaccid on that side. Pt is still unable to move left arm against gravity.
--- NOTE | 2021-08-27 10:55 | NUR ---
Pt complaining of 10/10 lower abdominal pain, Toradol given and DR. Sun notifed. Dr. Sun ordered one time dose of dilaudid and told me to call him back if this did not relieve the pain. Pt reported nausea this AM as well and prn zofran was given with good effect. Pt worked with APPLICATIONS SUPPORT SPECIALIST and failed swallow eval. Increased oxygen needs after APPLICATIONS SUPPORT SPECIALIST eval and lungs sound a little more wet.
--- NOTE | 2021-08-27 11:37 | NUR ---
Pt appears more comfortable at this time and is sleeping. VSS on heated highflow screener and blender operator 45L 50% sating low 90s.
--- NOTE | 2021-08-27 13:41 | NUR ---
Spiritual care visit conducted. Patient's spouse, Saida, is bedside and tearful. Patient is minimally responsive but not engaged much in the conversation. We talk at length about their relationship, the pt's medical history, his current wishes to be at home and to not receive tube feeding and their spiritual journey. She also tells me about the family unit complications, their love/hate relationship with a particular restorationism and the many deaths she has endured within her family. I listen empathically, normalize her experience, encouraged self-care, explored sources of meaning and inspiration, and provided anticipatory grief support, pastoral counseling department chair and prayer. Pt and spouse respond well and display evidence of increased peace and a deeper sense of being comforted. I will continue to remain available to pt and family.
--- NOTE | 2021-08-27 13:56 | NUR ---
Pt expressed that she would like to go to comfort care. Pt has been going into SVT nonsustained when turning pt and pt is still having 10/10 pain in abdomen, attempted to contact Dr. Caldwell and LVM.
--- NOTE | 2021-08-27 14:57 | NUR ---
I spoke with Dr. Caldwell regarding families wishes for comfort care. He stated he would put in orders. Verbal orders for dilaudid were given for pain in abdomen. 1mg given with good effect, pt is resting at this time.
--- NOTE | 2021-08-27 16:02 | NUR ---
Spiritual care visit. Follow-up visit after comfort care decision is made by pt's family. We discuss how they are processing the emotional aspect as well as the details of it. I provide emotional support and encouragement. Family shows signs of being comforted. I will continue to remain available.
--- NOTE | 2021-08-27 16:07 | NUR ---
Met with pt, his and oldest daughter this morning. Pt had just failed swallow eval, and his 02 needs increased for a few hours, likely r/t aspiration during eval. Pt is alert and oriented, but unable to speak. He was using a notepad, whiteboard and picture board alternately over the past few days, but now refuses and will try to tell what he is thinking by shaking his head yes/no and pointing or mouthing the words. He did tell me pain was "10" by running his figners across lower abdomen, then showing me all 5 fingers, then closing, reopening them. I repeated "five", he shook head "no". I said,"10", and he shook his "yes". He repeated this gesture for Ellie, bedside RN. It was soon after this conversation that pt made it clear he does not wish to have a feeding tube placed under any cirmcumstances. Initially, this was very upsetting to pt's . However, she did state that pt would not want to live this way, as he is very independent. She did decide this afternoon to honor pt's wishes and allow him to go with comfort care, and he will go home on hospice when he is discharged home. Pt made it clear to Dr. Sun he does want to eat and drink. Comfort Care order placed by Dr. Caldwell.
--- NOTE | 2021-08-27 16:44 | NUR ---
Shift note: Pt is nonverbal, but can nod yes/no. Pt now has comfort care orders in as of 1500. PRN dilaudid given x2 for abdominal pain. PRN nausea medications given as well this AM. Multiple family members have visited this evening and a comfort care cart was placed in room. Pt family is wanting to take pt home with hospice, the case alondra was notified and talked with Jose Francisco at bedside. Family is asking that we keep pt on the heated high flow or oxygen until pt gets discharged, they are wanting pt to be able to make it home.
--- NOTE | 2021-08-27 18:19 | NUR ---
Pt was complaining of pain, prn roxanol given. Increased secretions scalpaldamine patch and atropine drops given.
--- NOTE | 2021-08-27 23:05 | NUR ---
PT UPDATE AT APPROX 2139, RN TO ROOM TO ROUND ON PT. PT NON RESPONSIVE. NO PULSE FOUND. NO SPONTANEOUS BREATHING NOTED. PT COMFORT CARE STATUS, DNR. CHARGE NURSE CALLED INTO ROOM. TIME OF , 2140. FAMILY NOTIFIED, ARRIVED TO ROOM APPROX 0. APPROX 8 PEOPLE IN ROOM CURRENTLY. MD NOTIFIED. WILL REMAIN AVAILABLE FOR FAMILY.
--- NOTE | 2021-08-28 04:22 | NUR ---
PT UPDATE FAMILY LEFT APPROX 0200. CALL PLACED TO DONOR LINE. ICE PUT ON PT'S EYES. POST MORTUM CARE COMPLETED. PT TRANSFERRED TO ROOM 203.
== END 2021-08-28 03:30 | DRG 64 ==
LOC: ER 03:37 → MEDS 10:00 → PCU 10:00 → MEDS 10:54 → PCU 08-25 16:43
PROVIDERS: Family Medicine; Student in an Organized Health Care Education/Training Program; ADMIT Family Medicine
PROC: 5A0945A Assistance with Respiratory Ventilation, 24-96 Consecutive Hours, High Flow/Velocity Cannula (ICD-10-PCS; principal; 2021-08-26)
DX: I63.311 Cerebral infarction due to thrombosis of right middle cerebral artery (principal); J96.01 Acute respiratory failure with hypoxia; J69.0 Pneumonitis due to inhalation of food and vomit; I50.42 Chronic combined systolic (congestive) and diastolic (congestive) heart failure; I42.0 Dilated cardiomyopathy; G81.94 Hemiplegia, unspecified affecting left nondominant side; Z51.5 Encounter for palliative care; R29.709 NIHSS score 9; R47.01 Aphasia; I11.0 Hypertensive heart disease with heart failure; E11.9 Type 2 diabetes mellitus without complications; M54.9 Dorsalgia, unspecified; G89.29 Other chronic pain; Z96.653 Presence of artificial knee joint, bilateral; Z88.0 Allergy status to penicillin; Z88.8 Allergy status to other drugs, medicaments and biological substances; Z98.890 Other specified postprocedural states; Z87.891 Personal history of nicotine dependence; Z87.820 Personal history of traumatic brain injury; Z79.899 Other long term (current) drug therapy
CPT/HCPCS: 31720; 36415; 51702; 70450; 70496; 70498; 70551; 71045; 80048; 80053; 82947; 83605; 83735; 84100; 84145; 84478; 84484; 85025; 86140; 92526; 92610; 93005; 93010; 94762; 97112; 97162; 97167; 97530; 99285-25; A9270; C1751; J1170; J1650; J1815; J1885; J1956; J2060; J2405; J3010; J7030; J7050; J7060; J7070; Q9967